=== PATIENT | female | born 1970 | race African-American/Black ===

== ENCOUNTER 2022-10-21 14:17 | Emergency (ER) | payer OTHER, MEDICAID ==
[~2022-10-21] VITALS: Ht 165.1 cm; Wt 121.6 kg
[2022-10-21 14:24] VITALS: BP_SYST 143
[2022-10-21 15:31] LABS: BASOPHILS % (AUTO) 0.2 % (0.0-2.0); EOSINOPHILS % (AUTO) 0.1 % (0.0-4.0); HEMATOCRIT 34.7 % (36-48); HEMOGLOBIN 11.3 g/dL (12.0-16.0); LYMPHOCYTES # (AUTO) 0.5 K/uL (1.0-5.5); LYMPHOCYTES % (AUTO) 4.2 % (20.5-51.5); MEAN CORPUSCULAR HEMOGLOBIN 24 pg (27-31); MEAN CORPUSCULAR HGB CONC 33 % (32-36); MEAN CORPUSCULAR VOLUME 73 fL (79.0-98.0); MONOCYTES # (AUTO) 0.7 K/uL (0.0-1.0); MONOCYTES % (AUTO) 5.2 % (1.7-9.3); NEUTROPHILS # (AUTO) 11.6 K/uL (1.8-7.7); NEUTROPHILS % (AUTO) 90.3 % (40.0-70.0); PLATELET COUNT (AUTO) 205 K/uL (130-430); RED BLOOD CELL COUNT(AUTO) 4.72 MIL/uL (4.2-6.2); RED CELL DISTRIBUTION WIDTH 18.8 % (9.0-15.0); WHITE BLOOD COUNT (AUTO) 12.8 K/uL (4.8-10.8)
[2022-10-21 15:35] LABS: CALCIUM 9.2 mg/dL (8.4-11.0); CREATININE 1.12 mg/dL (0.55-1.30)
[2022-10-21 15:39] LABS: ALBUMIN 3.9 g/dL (3.4-4.8); TOTAL BILIRUBIN 0.5 mg/dL (0.0-1.0)
[2022-10-21 15:53] LABS: BILIRUBIN,URINE NEGATIVE (NEGATIVE); BLOOD, URINE NEGATIVE (NEGATIVE); COLOR,URINE YELLOW (YELLOW); GLUCOSE,URINE NEGATIVE (NEGATIVE); KETONES,URINE NEGATIVE (NEGATIVE); LEUKOCYTE ESTERASE ,URINE 1+ (NEGATIVE); NITRITE, URINE POSITIVE (NEGATIVE); PH,URINE 7.5 (5.0-8.0); PROTEIN URINE TRACE (NEGATIVE); UROBILINOGEN,URINE 0.2 (0.2-1.0)
[2022-10-21 16:01] LABS: CLARITY/URINE HAZY (CLEAR)
[2022-10-21] MEDS: ONDANSETRON 4 MG ODT TAB PO ONE (16:01)
[2022-10-21] MEDS: KETOROLAC TROMETHAMINE 30 MG VIAL IM ONE (16:01)
[2022-10-21 16:30] VITALS: BP_SYST 141
[2022-10-21 16:44] LABS: BACTERIA,URINE MODERATE /HPF (None Seen); MUCUS,URINE None Seen /LPF (None Seen); RBC,URINE 0-3 /HPF (0-3); URINE AMORPHOUS PHOSPHATES 2+ /HPF (None Seen); YEAST,URINE Few /HPF (None Seen)
[2022-10-21] MEDS ORDERED: HYDR-3917 PO (18:02)
[2022-10-21] MEDS ORDERED: TAMS-11 PO (18:02)
[2022-10-21] MEDS ORDERED: IBUP-1969 PO (18:02)
[2022-10-21] MEDS ORDERED: ONDA-8 TL (18:02)
[2022-10-21] MEDS ORDERED: CEPH-548 PO (18:02)
[2022-10-21] MEDS: cefTRIAXone 1 GM in LIDOCAINE 1%, 20 ML MDV 2.1 ML IM ONE (19:34)
== END 2022-10-21 18:30 | disposition home or self-care (01) ==
LOC: SED 14:17
DX: N20.1 Calculus of ureter (principal); N13.9 Obstructive and reflux uropathy, unspecified; D72.829 Elevated white blood cell count, unspecified; R10.32 Left lower quadrant pain; R10.12 Left upper quadrant pain; R50.9 Fever, unspecified; Z88.6 Allergy status to analgesic agent; Z79.899 Other long term (current) drug therapy
CPT/HCPCS: 99285; 74176; 80053; 81000; 83690; 85025; 87086; 36415; 76376; 96372; Q0162; J0696; J1885; J2001